=== PATIENT | female | born 1995 | race Caucasian/White ===

== ENCOUNTER → 2016-10-16 | Outpatient (CLI) | payer BC ==
[2016-10-16 10:11] LABS: CH 29.5; CHCM 33.4; HCT 40.7 % (34.0-46.0); HGB 13.9 gm/dL (11.4-16.0); MCH 30.3 pg (25.0-35.0); MCHC 34.2 g/dL (31.0-37.0); MCV 88.6 fL (80.0-100.0); Mean Platelet Volume 6.7; RBC 4.59 m/uL (3.80-5.40); RDW 12.5 % (11.5-15.5); WBC 7.1 k/uL (4.0-11.0)
[2016-10-16 10:24] LABS: Anion Gap 11 mmol/L; Blood Urea Nitrogen 11 mg/dL (7-17); Calcium 9.6 mg/dL (8.4-10.2); Carbon Dioxide 24 mmol/L (22-30); Chloride 107 mmol/L (98-107); Glucose 108 mg/dL (74-99); Non-African American GFR(MDRD) >60 (>60 ml/min/1.73 sqM); Potassium 4.3 mmol/L (3.5-5.1); Sodium 142 mmol/L (137-145)
== END | disposition home or self-care (01) ==
LOC: LABWHC1 08:58
PROVIDERS: ATTEND Family Medicine
DX: R06.02 Shortness of breath (principal)
CPT/HCPCS: 36415; 80048; 84443; 85027; 85379

== ENCOUNTER 2018-08-07 06:48 | Day surgery (SDC) | payer BC ==
[2018-08-01 08:57] VITALS: BMI 21.7
[~2018-08-07 06:48] MED LIST: DEXAMETHASONE SOD PHOSPHATE 10 MG/ML 1 ML VIAL IV ONE; DEXAMETHASONE SOD PHOSPHATE 4 MG/ML 1 ML VIAL IV ONE; FAMOTIDINE 20 MG/2 ML VIAL IV ONE; LACTATED RINGERS 1,000 ML IV SCH; LIDOCAINE 1% 20 ML VIAL (10MG/ML) FOR IV START INTRADERMA PRN; MELOXICAM 7.5 MG TAB PO ONE; MIDAZOLAM (PF) 2 MG/2 ML VIAL IV PRN; ONDANSETRON 4 MG/2 ML VIAL IVP ONE; ceFAZolin 1,000 MG in DEXTROSE/WATER 1 50ML.BAG IV ONE; fentaNYL (PF) 50 MCG/ML 2 ML AMP IV PRN
[2018-08-07] MEDS ORDERED: PROPOFOL 10 MG/ML 20 ML VIAL IV ONE (08:21)
[2018-08-07] MEDS ORDERED: LIDOCAINE 1% INJ 10MG/ML (20 ML MDV) ONE (08:21)
[2018-08-07] MEDS ORDERED: DILTIAZEM 100 MG VIAL.PORT IV ONE (08:21)
[2018-08-07] MEDS ORDERED: SUCCINYLCHOLINE CHLORIDE 100 MG/5 ML SYR IV ONE (08:21)
[2018-08-07] MEDS ORDERED: DEXAMETHASONE SOD PHOS (MDV) 100 MG/10 ML VIAL ONE (08:21)
[2018-08-07] MEDS ORDERED: MIDAZOLAM 2 MG/2 ML VIAL ONE (08:21)
[2018-08-07] MEDS ORDERED: BUPIVACAINE-EPI 0.5%-1:200,000 10 ML VIAL SQ ONE (08:26)
[2018-08-07] MEDS ORDERED: LIDOCAINE 1%-EPI 1:100,000 20 ML VIAL SQ ONE (08:26)
[2018-08-07] MEDS: HYDROmorphone 0.5 MG/0.5 ML SYRINGE IVP ONE ×2 (09:25→09:32)
[2018-08-07 09:32] VITALS: TEMP 97.1
--- NOTE | 2018-08-07 09:35 | P.OP ---
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 She's had over 6 cases that tonsillitis per year over the last 2-3 years. She has constant sore throats and exudate from her tonsils causing halitosis and cryptic tonsils. She is motivated to have her tonsils removed and we will inspect the adenoids and remove them if they're large and obstructive. All risks, benefits, and alternative therapies were discussed. Consent was obtained and all questions were answered. Operative Findings: Cryptic tonsils and adenoids large irregular inflamed Description of Procedure: Prior to surgery all risks, benefits, and alternative therapies were discussed in detail. Risks of bleeding, infection, need for secondary surgery, airway problems, anesthetic complications, etc. etc. were discussed in detail. Consent was obtained and all questions were answered. OPERATIVE PROCEDURE: This patient was taken to the operative room and placed in the supine position. A functioning IV line was in placed and the patient was monitored throughout the entire case by the department of anesthesia. The patient underwent general anesthetic with intubation and tube was secured. A McIvor mouth gag was placed into the patients mouth with care to avoid any trauma to the lips, teeth, gums or tongue. Mouth was opened and tongue was depressed. The tonsils were grasped with an Allis forceps and brought medially bilaterally. A subcapsular dissection was performed utilizing an Evac-70 handpiece with an Arthrotec setting of 7. The tonsils were removed without incident bilaterally and the tonsillar fossae were inspected and bleeding was nonexistent and stopped spontaneously with Coblation. A Marcaine and lidocaine mixture was injected into the peritonsillar area for anesthesia postoperatively. After the tonsillar fossae were reinspected and no bleeding was seen attention was then paid to the nasopharynx where a red rubber catheter was placed into the nose and out the mouth and used to retract the soft palate. With use of indirect mirror examination and the Coblation hand wand, the adenoid tissue was removed in that fashion again utilizing an Evac-70 handpiece with Arthrotec setting of 7. The adenoid tissues were removed and fulgurated. The patient tolerated this procedure well. The nasopharynx shows no signs of any bleeding. McIvor mouth gag and the red rubber catheter were removed. The stomach was suctioned and the patient was taken to postanesthesia recovery in excellent condition having tolerated this procedure well. The patient will follow up in the office in one week as scheduled.
[2018-08-07 10:18] VITALS: RESP 16
[2018-08-07] MEDS ORDERED: HYDROcodone/APAP 5-325MG 1 EACH TAB PO ONE (10:32)
[2018-08-07 11:56] VITALS: BP 108/78; PULSE 76
== END 2018-08-07 11:30 | disposition home or self-care (01) ==
LOC: OR 06:48
PROVIDERS: ATTEND Otolaryngology
DX: J03.91 Acute recurrent tonsillitis, unspecified (principal); J35.03 Chronic tonsillitis and adenoiditis; J45.909 Unspecified asthma, uncomplicated; R59.0 Localized enlarged lymph nodes; Z79.891 Long term (current) use of opiate analgesic; Z79.2 Long term (current) use of antibiotics; Z82.5 Family history of asthma and other chronic lower respiratory diseases; Z88.0 Allergy status to penicillin; Z88.1 Allergy status to other antibiotic agents
CPT/HCPCS: 81025; 88304; 42821; J2250; J1100 ×2; J2405; J2001; J0690; J0330; J2704; J1170

== ENCOUNTER → 2021-09-28 | Outpatient (CLI) | payer OTHER, BC ==
--- NOTE | 2021-09-28 16:30 | US ---
EXAMINATION TYPE: Transabdominal DATE OF EXAM: 09/28/2021 3:18 PM COMPARISON: NONE CLINICAL HISTORY: Z36.87 UNCERTAIN LMP. EXAM PERFORMED: Transabdominal (TA) EXAM MEASUREMENTS: GESTATIONAL AGE / DATING Physician Established: Not yet established Dates by LMP: LMP unknown Dates by First Scan: No previous this is first scan Dates by Current Scan for: ( 9 weeks/0 days) EDC: 05/03/2022 MATERNAL ANATOMY Uterus: 11.3 x 5.7 x 6.3cm Right Ovary: 3.8 x 1.8 x 2.6cm Left Ovary: 5.3 x 4.1 x 3.5cm Post CDS / Adnexa: wnl Presence of free fluid: no Presence of corpus luteal cyst: left ovary: 4.3 x 3.2 x 2.4cm Presence of subchorionic bleed: no GESTATION / SURVEY CRL: 2.2cm (9 weeks/0 days) Yolk Sac (normal less than 6mm): 4.2mm Heart Rate: 171 bpm Rhythm: Normal IUP: Viable IUP Single live intrauterine gestation as gestational sac, yolk sac, and pole are seen. No free flu id in pelvic cul-de-sac. Both ovaries are present. There is 4.3 cm nonsimple cyst in left ovary may reflect corpus luteal cyst . Other etiologies is not excluded. No suspicious extra ovarian masses. IMPRESSION: Single live intrauterine gestation is seen, mean crown-rump length 2.2 cm corresponding t o 9 week 0 day old fetus.
== END | disposition home or self-care (01) ==
LOC: RADUSWWP 14:54
PROVIDERS: ATTEND Obstetrics & Gynecology
DX: Z36.87 Encounter for antenatal screening for uncertain dates (principal); Z3A.09 9 weeks gestation of pregnancy
CPT/HCPCS: 76801

== ENCOUNTER 2022-04-30 09:45 | Inpatient (IN) | payer OTHER, BC ==
[2022-04-30 11:20] LABS: Appearance,Urine Clear (Clear); Bilirubin,Urine Negative (Negative); Blood,Urine Trace (Negative); Color,Urine Yellow; Glucose,Urine (UA) Negative (Negative); Ketones,Urine Negative (Negative); Leukocyte Esterase,Urine Negative (Negative); Mucus,Urine Rare /hpf; Nitrite,Urine Negative (Negative); Protein,Urine Negative (Negative); RBC,Urine <1 /hpf (0-5); Specific Gravity,Urine 1.015 (1.001-1.035); Squamous Epithelial Cell,Urine <1 /hpf (0-4); Urobilinogen,Urine <2.0 mg/dL (<2.0); WBC,Urine 1 /hpf (0-5)
[2022-04-30 11:36] LABS: Protein/Creatinine Ratio,Urine 0.061
[2022-04-30 12:02] LABS: Basophils % (A) 0 %; Eosinophils % (A) 0 %; HCT 33.5 % (34.0-46.0); Hypochromasia Slight; Lymphocytes # (A) 1.7 k/uL (1.0-4.8); Lymphocytes % (A) 13 %; MCH 26.8 pg (25.0-35.0); MCHC 32.9 g/dL (31.0-37.0); MCV 81.5 fL (80.0-100.0); Mean Platelet Volume 10.2; Monocytes # (A) 0.4 k/uL (0-1.0); Monocytes % (A) 3 %; Neutrophils # (A) 10.8 k/uL (1.3-7.7); Neutrophils % (A) 82 %; Platelet Count 192 k/uL (150-450); RBC 4.11 m/uL (3.80-5.40); WBC 13.3 k/uL (3.8-10.6)
[2022-04-30 12:15] LABS: ALT 16 U/L (4-34); AST 21 U/L (14-36); African American GFR (CKD) >90 (>60 ml/min/1.73 sqM); Blood Urea Nitrogen 11 mg/dL (7-17); LDH 467 U/L (313-618); Non-African American GFR(CKD) >90 (>60 ml/min/1.73 sqM); Uric Acid 4.3 mg/dL (3.7-7.4)
--- NOTE | 2022-04-30 13:11 | P.HPOB ---
History of Present Illness H&P Date: 04/30/22 Chief Complaint: Term , gestational hypertension This is a 27 year old 1 para 0 at 40-0/7 weeks gestation who presents with increasing contractions over the last several hours. She presents to labor and delivery triage where she was found to be irregularly stephie and 1 cm dilated. Her blood pressures were elevated. Initial blood pressures were 140s over 80s. They did come down to 130/74 however most recent blood pressure 145/95. Preeclamptic labs were all within normal limits.. Throughout her observation and blood pressure monitoring her contractions did increase in frequency and intensity. Her cervix is 1 cm dilated 90% effaced and the vertex in the -2 station, cervix is anterior with bulging membranes. heart tones are category 1. Decision is to admit in early active labor with gestational hypertension. Laboratory data: Blood type O positive, antibody screen negative, rubella immune, VDRL nonreactive, hepatitis B surface antigen negative, HIV negative, gonorrhea and clinic cultures negative, group B strep negative, glucose tolerance testing within normal limits. Review of Systems All systems: negative Past Medical History Past Medical History: No Reported History, Asthma History of Any Multi-Drug Resistant Organisms: None Reported Additional Past Surgical History / Comment(s): BMT, WISDOM TEETH REMOVED UNDER ANESTHESIA Past Anesthesia/Blood Transfusion Reactions: No Reported Reaction Smoking Status: Never smoker - Past Family History Mother Family Medical History: No Reported History Medications and Allergies Home Medications Medication Instructions Recorded Confirmed Type Aspirin [Adult Low Dose Aspirin EC] 81 mg PO DAILY 12/24/21 04/30/22 History Omeprazole [PriLOSEC] 10 mg PO DIRECTED 12/24/21 04/30/22 History Pnv No.154/Iron Fum/Folic Acid 1 capsule PO DAILY 12/24/21 04/30/22 History [ Plus Vitamin Tablet] Allergies Allergy/AdvReac Type Severity Reaction Status Date / Time amoxicillin Allergy Rash/Hives Verified 04/30/22 09:49 cefdinir [From Omnicef] Allergy Rash/Hives Verified 04/30/22 09:49 Exam Intake and Output 04/29/22 04/30/22 04/30/22 22:59 06:59 14:59 Other: Weight 78.018 kg Targeted physical exam is performed. This is a visibly gravid, uncomfortable female. HEENT exam unremarkable. Lungs clear to auscultation and breathing is unlabored. Heart is a regular rate and rhythm. Abdomen is gravid with palpable moderate contractions. No upper quadrant pain. On cervical exam the cervix is 1 cm dilated, 90% effaced and vertex in the -2 station with bulging membranes. There is bloody show. 2+ deep tendon reflexes and 1+ bilateral lower extremity edema. heart tones are category 1. She is stephie every 3-6 minutes. Results Result Diagrams: 04/30/22 11:46 04/30/22 11:47 Abnormal Lab Results - Last 24 Hours (Table) 04/30/22 04/30/22 Range/Units 10:49 11:46 WBC 13.3 H (3.8-10.6) k/uL Hgb 11.0 L (11.4-16.0) gm/dL Hct 33.5 L (34.0-46.0) % Neutrophils # 10.8 H (1.3-7.7) k/uL Urine Blood Trace H (Negative) Urine Mucus Rare H (None) /hpf Assessment and Plan (1) Term Current Visit: Yes Status: Acute Code(s): Z34.90 - ENCNTR FOR SUPRVSN OF NORMAL , UNSP, UNSP TRIMESTER SNOMED Code(s): 48047768 (2) Spontaneous onset of labor Current Visit: Yes Status: Acute Code(s): QOX3794 - SNOMED Code(s): 59133360 (3) induced hypertension Current Visit: Yes Status: Acute Code(s): O13.9 - GESTATIONAL HTN W/O SIGNIFICANT PROTEINURIA, UNSP TRIMESTER SNOMED Code(s): 88871102 Plan: 27 showed 1 para 0 woman admitted at 40-0/7 weeks gestation in spontaneous early active labor. Elevated blood pressures, preeclamptic labs within normal limits. Probable gestational hypertension. Is recommended for admission with augmentation of labor and blood pressure management as indicated. status is currently reassuring by external monitoring. She is group B strep negative and Rh+.
[2022-04-30] MEDS ORDERED: LIDOCAINE 0.5% (PF) 5 MG/ML (50 ML SDV) SQ PRN (15:02)
[2022-04-30] MEDS ORDERED: TERBUTALINE 1 MG/ML VIAL SQ PRN (15:02)
[2022-04-30 15:14] LABS: Basophils % (A) 0 %; Eosinophils % (A) 0 %; HCT 33.2 % (34.0-46.0); HGB 11.2 gm/dL (11.4-16.0); Hypochromasia Slight; Lymphocytes # (A) 1.9 k/uL (1.0-4.8); Lymphocytes % (A) 14 %; MCH 27.3 pg (25.0-35.0); MCHC 33.6 g/dL (31.0-37.0); Mean Platelet Volume 9.5; Monocytes # (A) 0.5 k/uL (0-1.0); Monocytes % (A) 4 %; Neutrophils # (A) 11.2 k/uL (1.3-7.7); Neutrophils % (A) 80 %; Platelet Count 202 k/uL (150-450); RDW 13.9 % (11.5-15.5)
[2022-04-30] MEDS: LACTATED RINGERS 1,000 ML IV SCH (15:15)
[2022-05-01] MEDS: BUTORPHANOL 1 MG/ML 1 ML VIAL IV PRN ×2 (01:02→03:58)
[2022-05-01] MEDS: LACTATED RINGERS 1,000 ML IV SCH ×2 (03:58→14:54)
[2022-05-01] MEDS: OXYTOCIN 30 UNITS/500 ML NS 30 UNIT in SALINE 1 500ML.BAG IV SCH ×2 (05:05→13:29)
[2022-05-01] MEDS ORDERED: fentaNYL (PF) 50 MCG/ML 5 ML AMP ONE (06:50)
[2022-05-01] MEDS ORDERED: SODIUM CHLORIDE 0.9% 100 ML BAG ONE (06:50)
[2022-05-01] MEDS ORDERED: ROPIVACAINE 5 MG/ML 20 ML AMPULE ONE (06:50)
[2022-05-01] MEDS ORDERED: OXYTOCIN 30 UNITS/500 ML NS 30 UNIT in SALINE 1 500ML.BAG IV SCH (13:15)
[2022-05-01] MEDS ORDERED: ZOLPIDEM 5 MG TAB PO PRN (13:15)
[2022-05-01] MEDS ORDERED: diphenhydrAMINE 50 MG/ML 1 ML VIAL IVP PRN ×2 (13:15)
[2022-05-01] MEDS ORDERED: LANOLIN CREAM 5 GM TUBE TOPICAL PRN (13:15)
[2022-05-01] MEDS ORDERED: HYDROCORTISONE 2.5% RECTAL CREAM 30 GM TUBE RECTAL PRN (13:15)
[2022-05-01] MEDS ORDERED: diphenhydrAMINE 50 MG CAP PO PRN (13:15)
[2022-05-01] MEDS ORDERED: diphenhydrAMINE 25 MG CAP PO PRN (13:15)
[2022-05-01] MEDS ORDERED: BENZOCAINE/MENTHOL SPRAY 1 GM/SPRAY AEROSOL TOPICAL PRN (13:15)
[2022-05-01] MEDS ORDERED: SIMETHICONE 80 MG CHEWABLE PO PRN (13:15)
--- NOTE | 2022-05-01 13:15 | P.PROBDLV ---
Vaginal Delivery Note - . Vaginal Delivery Note: Findings: Male infant in the vertex left occiput anterior position with Apgars of 9 at 1 minute and 9 at 5 minutes weighing 7 lbs. 8 oz., 3400 g. Second degree perineal laceration. Intact, three-vessel cord placenta. EBL 100 mL's. Delivery summary: This is a 27-year-old 1 para 0 woman who presented at 40-0/7 weeks' gestation with early labor and elevated blood pressures. Preeclamptic evaluation was negative and she was regularly stephie. She was therefore admitted. She had a prolonged latent stage of labor throughout the night however in the morning she was started on Pitocin augmentation and had spontaneous rupture of membranes. She received an epidural anesthetic. She then progressed to complete cervical dilation by approximately 11:37 AM. She commenced pushing with excellent maternal effort. When she did push to she was repositioned, prepped and draped in the dorsal modified Zuleyma position. With additional maternal effort the head delivered from the left occiput anterior position. The anterior followed by the posterior shoulders were delivered without difficulty and the rest of the infant was delivered onto the field. The nose and mouth were bulb suctioned and the infant was placed on maternal abdomen. The cord was clamped and cut. Cord blood sample was taken for maternal Rh- status. The perineum was inspected and a second-degree laceration was noted. This was infused with lidocaine. This was repaired with 3-0 Vicryl suture in the usual fashion. An intact, three-vessel cord placenta was then expressed after a less than 5 minute third stage of labor. The uterus was massaged and was noted to be firm below the level of the umbilicus. EBL was approximately 100 mL's. The rest the vagina and cervix were inspected and no further lacerations were noted. All counts were correct. Both mother and infant were doing well post delivery in the room.
[2022-05-01] MEDS: IBUPROFEN 600 MG TAB PO PRN ×2 (13:27→21:31)
[2022-05-01] MEDS: SENNOSIDES-DOCUSATE SODIUM 1 EACH TAB PO SCH (19:58)
[2022-05-01] MEDS: ACETAMINOPHEN TAB 325 MG TAB PO PRN (19:59)
[2022-05-02] MEDS: ACETAMINOPHEN TAB 325 MG TAB PO PRN ×2 (04:03→20:25)
[2022-05-02] MEDS: LACTATED RINGERS 1,000 ML IV SCH ×3 (04:23→17:10)
[2022-05-02 05:34] LABS: Basophils # (A) 0.1 k/uL (0-0.2); Basophils % (A) 0 %; Eosinophils # (A) 0.1 k/uL (0-0.7); Eosinophils % (A) 1 %; HCT 30.1 % (34.0-46.0); HGB 9.5 gm/dL (11.4-16.0); Hypochromasia Marked; Lymphocytes # (A) 2.4 k/uL (1.0-4.8); Lymphocytes % (A) 14 %; MCH 27.2 pg (25.0-35.0); MCHC 31.5 g/dL (31.0-37.0); Mean Platelet Volume 8.9; Monocytes # (A) 0.9 k/uL (0-1.0); Monocytes % (A) 5 %; Neutrophils # (A) 14.1 k/uL (1.3-7.7); Neutrophils % (A) 79 %; Platelet Count 197 k/uL (150-450); RBC 3.48 m/uL (3.80-5.40); WBC 17.9 k/uL (3.8-10.6)
[2022-05-02 05:35] LABS: MCV 86.3 fL (80.0-100.0)
[2022-05-02] MEDS: IBUPROFEN 600 MG TAB PO PRN ×3 (06:34→23:47)
[2022-05-02] MEDS: SENNOSIDES-DOCUSATE SODIUM 1 EACH TAB PO SCH ×2 (07:57→20:25)
[2022-05-02 20:51] VITALS: RESP 16
[2022-05-03] MEDS: LACTATED RINGERS 1,000 ML IV SCH (01:48)
[2022-05-03] MEDS: ACETAMINOPHEN TAB 325 MG TAB PO PRN (04:57)
--- NOTE | 2022-05-03 07:20 | P.DS ---
Providers Date of admission: 04/30/22 13:17 Expected date of discharge: 05/03/22 Attending physician: Michelle Estrada Primary care physician: Stated None - Discharge Diagnosis(es) (1) Term Current Visit: Yes Status: Acute (2) Spontaneous onset of labor Current Visit: Yes Status: Acute (3) induced hypertension Current Visit: Yes Status: Acute (4) Normal spontaneous vaginal delivery Current Visit: Yes Status: Acute (5) Perineal laceration with delivery, second degree Current Visit: Yes Status: Acute Hospital Course: This is a 27-year-old 1 now para 1 woman who presented at 40 weeks gestation in early active labor. She was also found to have some elevated blood pressures. PIH labs within normal limits. She was admitted and had a prolonged latent phase of labor. Ultimately she was started on the Pitocin and had spontaneous rupture of membranes. She received an epidural anesthetic during labor. She went on to complete cervical dilation and after greater than 1 hour first stage of labor went on to deliver a liveborn male infant over second- degree perineal laceration. Please see the delivery summaries for details. The her course was unremarkable. By the morning of day #1 she was ambulating and voiding without difficulty. She was struggling somewhat with breast-feeding. The 's serum bilirubin was elevated therefore she was not discharged home. By the morning of day #2 she continued to do very well. Breast-feeding was going Morphis successfully. Her pain was well- controlled and her lochia was decreasing. She is therefore discharged home with routine instructions for care and follow-up pending discharge of the . Patient Condition at Discharge: Good Plan - Discharge Summary New Discharge Prescriptions: No Action Pnv No.154/Iron Fum/Folic Acid [ Plus Vitamin Tablet] 1 capsule PO DAILY Omeprazole [PriLOSEC] 10 mg PO DIRECTED Aspirin [Adult Low Dose Aspirin EC] 81 mg PO DAILY Discharge Medication List Aspirin [Adult Low Dose Aspirin EC] 81 mg PO DAILY 12/24/21 [History] Omeprazole [PriLOSEC] 10 mg PO DIRECTED 12/24/21 [History] Pnv No.154/Iron Fum/Folic Acid [ Plus Vitamin Tablet] 1 capsule PO DAILY 12/24/21 [History] Follow up Appointment(s)/Referral(s): Michelle Estrada MD [STAFF PHYSICIAN] - 6 Weeks Activity/Diet/Wound Care/Special Instructions: Follow-up in the office in 6 weeks . Call with any concerning signs or symptoms including heavy vaginal bleeding, severe abdominal pain, fever greater than 101, swelling or redness of the lower extremities, foul vaginal discharge, or signs of depression. Nothing in the vagina for 6 weeks after delivery, specifically no intercourse. Discharge Disposition: HOME SELF-CARE
[2022-05-03] MEDS: SENNOSIDES-DOCUSATE SODIUM 1 EACH TAB PO SCH (08:38)
[2022-05-03] MEDS: IBUPROFEN 600 MG TAB PO PRN (08:38)
[2022-05-03 09:24] VITALS: BP 118/78; PULSE 73; TEMP 98.4
== END 2022-05-03 17:00 | disposition home or self-care (01) | DRG 807 ==
LOC: FBPOP 09:45 → 4FBP 13:17
PROVIDERS: ADMIT Obstetrics & Gynecology; ATTEND Obstetrics & Gynecology
PROC: 3E0R3BZ Introduction of Anesthetic Agent into Spinal Canal, Percutaneous Approach (ICD-10-PCS; principal; 2022-05-01)
PROC: 10E0XZZ Delivery of Products of Conception, External Approach (ICD-10-PCS; 2022-05-01)
PROC: 0KQM0ZZ Repair Perineum Muscle, Open Approach (ICD-10-PCS; 2022-05-01)
DX: O13.4 Gestational [pregnancy-induced] hypertension without significant proteinuria, complicating childbirth (principal); Z37.0 Single live birth; O12.14 Gestational proteinuria, complicating childbirth; O70.1 Second degree perineal laceration during delivery; O63.0 Prolonged first stage (of labor); Z3A.40 40 weeks gestation of pregnancy; Z79.82 Long term (current) use of aspirin; Z79.899 Other long term (current) drug therapy; Z88.0 Allergy status to penicillin; Z88.1 Allergy status to other antibiotic agents
CPT/HCPCS: 59025; 81001; 82565; 82570; 83615; 84156; 84450; 84460; 84520; 84550; 85025; 86850; 86900; 86901; 99215

== ENCOUNTER 2023-10-17 06:36 | Inpatient (IN) | payer OTHER ==
[2023-10-17] MEDS ORDERED: OXYTOCIN 10 UNIT/ML 1 ML VIAL IM PRN (09:13)
[2023-10-17] MEDS ORDERED: TERBUTALINE 1 MG/ML VIAL SQ PRN (09:13)
[2023-10-17] MEDS ORDERED: METHYLERGONOVINE 0.2 MG/ML 1 ML AMP IM PRN (09:13)
[2023-10-17] MEDS ORDERED: TRANEXAMIC 1,000 MG/100ML-NACL 1,000 MG in EMPTY BAG 1 BAG IV PRN (09:13)
[2023-10-17] MEDS ORDERED: miSOPROStoL 200 MCG TAB PO PRN (09:13)
[2023-10-17] MEDS ORDERED: CARBOPROST TROMETHAMINE 250 MCG/ML 1 ML AMP IM PRN (09:13)
[2023-10-17] MEDS ORDERED: VANCOMYCIN IV PER PHARMACY 1 EACH MISC MISCELLANE PRN (09:14)
[2023-10-17] MEDS ORDERED: OXYTOCIN 30 UNITS/500 ML NS 30 UNIT in SALINE 1 500ML.BAG IV SCH (09:15)
[2023-10-17] MEDS: LACTATED RINGERS 1,000 ML IV SCH (09:37)
[2023-10-17] MEDS: VANCOMYCIN 1,250 MG in SODIUM CHLORIDE 0.9% 250 ML IVPB SCH (09:51)
[2023-10-17 10:43] LABS: Basophils % (A) 0 %; Eosinophils % (A) 0 %; HCT 32.9 % (34.0-46.0); HGB 10.8 gm/dL (11.4-16.0); Hypochromasia Slight; Lymphocytes % (A) 13 %; MCH 26.6 pg (25.0-35.0); MCV 80.8 fL (80.0-100.0); Mean Platelet Volume 9.5; Monocytes # (A) 0.5 k/uL (0-1.0); Monocytes % (A) 4 %; Neutrophils # (A) 12.1 k/uL (1.3-7.7); Neutrophils % (A) 81 %; Platelet Count 160 k/uL (150-450); Poikilocytosis Slight; RBC 4.07 m/uL (3.80-5.40); RDW 14.7 % (11.5-15.5)
[2023-10-17] MEDS ORDERED: SODIUM CHLORIDE 0.9% 250 ML BAG ONE (11:31)
[2023-10-17] MEDS ORDERED: fentaNYL (PF) 50 MCG/ML 5 ML AMP ONE (11:31)
[2023-10-17] MEDS ORDERED: ROPIVACAINE 5 MG/ML 30 ML VIAL ONE (11:31)
--- NOTE | 2023-10-17 16:06 | P.HPOB ---
History of Present Illness H&P Date: 10/17/23 Chief Complaint: Labor Ms. Sosa is a 28 year old at 40 weeks and 2 days with EDC of 10/15/2023 by 9 week US who presents in labor. Her has been essentially uncomplicated. The fetus is estimated in the 74%ile based on a 27 week US. Obstetric history: 1 FTVD, male, 7#8oz, no cx work-up: blood type O positive, antibody screen negative, rubella immune, VDRL non-reactive, HBsAg negative, HIV negative, HCV Ab negative, gonorrhea negative, chlamydia negative, 1 hour GTT wnl, s/p Tdap. GBS positive. Past Medical History Past Medical History: No Reported History, Asthma Additional Past Medical History / Comment(s): Asthma from childhood - resolved now History of Any Multi-Drug Resistant Organisms: None Reported Past Surgical History: Adenoidectomy, Tonsillectomy Additional Past Surgical History / Comment(s): BMT, WISDOM TEETH REMOVED UNDER ANESTHESIA Past Anesthesia/Blood Transfusion Reactions: No Reported Reaction Past Psychological History: No Psychological Hx Reported Smoking Status: Never smoker Past Alcohol Use History: None Reported, Occasional Past Drug Use History: None Reported - Past Family History Mother Family Medical History: No Reported History Father Family Medical History: No Reported History Medications and Allergies Home Medications Medication Instructions Recorded Confirmed Type Aspirin [Adult Low Dose Aspirin EC] 81 mg PO DAILY 12/24/21 10/17/23 History Omeprazole [PriLOSEC] 10 mg PO DIRECTED 12/24/21 10/17/23 History RX: Pnv No.154/Iron Fum/Folic Acid 1 capsule PO DAILY 12/24/21 10/17/23 History [ Plus Vitamin Tablet] Allergies Allergy/AdvReac Type Severity Reaction Status Date / Time amoxicillin Allergy Rash/Hives Verified 10/17/23 06:39 cefdinir [From Omnicef] Allergy Rash/Hives Verified 10/17/23 06:39 Exam Vital Signs Temp Pulse Resp BP 10/17/23 09:57 97.3 F L 73 16 120/77 Intake and Output 10/17/23 10/17/23 10/17/23 06:59 14:59 22:59 Other: Weight 71.668 kg 71.668 kg Focused physical exam is performed. This is a healthy-appearing in no apparent distress. Breathing is non-labored. Abdomen is gravid and non-tender. Cervical exam is 9/100/-2 with ruptured membranes revealing clear amniotic fluid. Extremities non-tender and non-edematous. heart tones are Category I and tocometer is graphing contractions every 2-4 minutes. Results Result Diagrams: 10/17/23 10:05 Abnormal Lab Results - Last 24 Hours (Table) 10/17/23 Range/Units 10:05 WBC 15.0 H (3.8-10.6) k/uL Hgb 10.8 L (11.4-16.0) gm/dL Hct 32.9 L (34.0-46.0) % Neutrophils # 12.1 H (1.3-7.7) k/uL Assessment and Plan Assessment: 28 year old at 40 weeks and 2 days in active labor Plan: Admit, clear liquid diet, s/p epidural, Vancomycin for GBS ppx, continuous EFM and tocometer. Anticipate vaginal delivery.
[2023-10-17] MEDS: LIDOCAINE 0.5% (PF) 5 MG/ML (50 ML SDV) SQ PRN (17:16)
[2023-10-17] MEDS: OXYTOCIN 30 UNITS/500 ML NS 30 UNIT in SALINE 1 500ML.BAG IV SCH (17:17)
[2023-10-17] MEDS ORDERED: diphenhydrAMINE 25 MG CAP PO PRN (17:17)
[2023-10-17] MEDS ORDERED: SIMETHICONE 80 MG CHEWABLE PO PRN (17:17)
[2023-10-17] MEDS ORDERED: LANOLIN CREAM 1 GM TUBE TOPICAL PRN (17:17)
[2023-10-17] MEDS ORDERED: HYDROCORTISONE 2.5% RECTAL CREAM 30 GM TUBE RECTAL PRN (17:17)
[2023-10-17] MEDS ORDERED: ZOLPIDEM 5 MG TAB PO PRN (17:17)
[2023-10-17] MEDS ORDERED: diphenhydrAMINE 50 MG CAP PO PRN (17:17)
[2023-10-17] MEDS ORDERED: diphenhydrAMINE 50 MG/ML 1 ML VIAL IVP PRN ×2 (17:17)
[2023-10-17] MEDS ORDERED: BENZOCAINE/MENTHOL SPRAY 1 GM/SPRAY AEROSOL TOPICAL PRN (17:17)
--- NOTE | 2023-10-17 17:17 | P.PROBDLV ---
Vaginal Delivery Note - . Vaginal Delivery Note: DATE OF SERVICE: 10/17/2023 PROCEDURE: Normal Spontaneous Vaginal Delivery ATTENDING: Dr. Mili Alexis MD ESTIMATED BLOOD LOSS: 100 mL FINDINGS: VMI, Apgars 9/9. Weight 8 pounds and 11 ounces (3940 grams) PROCEDURE: Ms. Sosa is a 28 year old at 40 weeks and 2 days presenting to labor and delivery in active labor. The has been essentially uncomplicated. For further details, please review the admitting H&P. The patient is GBS positive with allergies to pencillin and cephalosporins, therefore, IV Vancomycin was given for GBS prophylaxis. The patient received epidural anesthesia per her request. AROM occurred at 1543 revealing clear a mniotic fluid. The patient was completely dilated at 1644. The patient pushed effectively with Category II heart tones. A viable male infant was delivered at 1658. The was placed on the maternal abdomen and bulb suctioned. The was noted to be spontaneously crying. Cord was clamped and cut after a 1-minute delay. The was handed off to the pediatric team. Placenta was delivered whole with gentle cord traction at 1703. Oxytocin was started to facilitate uterine tone. Uterine fundus was found to be firm and below the umbilicus upon fundal massage. Thorough examination of the cervix, vagina, periurethral area, and perineum revealed a second degree periurethral laceration that was infiltrated with lidocaine and repaired with 2-0 Vicryl in the usual fashion. The patient is stable and allowed to begin the bonding process.
[2023-10-17] MEDS: IBUPROFEN 600 MG TAB PO PRN (21:00)
[2023-10-17] MEDS: SENNOSIDES-DOCUSATE SODIUM 1 EACH TAB PO SCH (21:01)
[2023-10-18] MEDS: ACETAMINOPHEN TAB 325 MG TAB PO PRN (00:24)
[2023-10-18 07:23] LABS: Basophils % (A) 0 %; Eosinophils # (A) 0.2 k/uL (0-0.7); Eosinophils % (A) 1 %; HCT 30.5 % (34.0-46.0); Hypochromasia Slight; Lymphocytes # (A) 2.9 k/uL (1.0-4.8); Lymphocytes % (A) 17 %; MCH 26.5 pg (25.0-35.0); MCHC 32.7 g/dL (31.0-37.0); MCV 81.1 fL (80.0-100.0); Mean Platelet Volume 9.6; Monocytes # (A) 0.8 k/uL (0-1.0); Monocytes % (A) 5 %; Neutrophils # (A) 13.3 k/uL (1.3-7.7); Neutrophils % (A) 76 %; Platelet Count 168 k/uL (150-450); RBC 3.76 m/uL (3.80-5.40); RDW 14.8 % (11.5-15.5); WBC 17.5 k/uL (3.8-10.6)
[2023-10-18 08:35] VITALS: RESP 16
[2023-10-18 17:44] VITALS: BP 119/81; PULSE 66; TEMP 98.2
== END 2023-10-18 18:55 | disposition home or self-care (01) | DRG 807 ==
LOC: FBPOP 06:36 → 4FBP 09:05
PROVIDERS: ADMIT Obstetrics & Gynecology; ATTEND Obstetrics & Gynecology
PROC: 10E0XZZ Delivery of Products of Conception, External Approach (ICD-10-PCS; principal; 2023-10-17)
PROC: 0UQMXZZ Repair Vulva, External Approach (ICD-10-PCS; 2023-10-17)
PROC: 10907ZC Drainage of Amniotic Fluid, Therapeutic from Products of Conception, Via Natural or Artificial Opening (ICD-10-PCS; 2023-10-17)
PROC: 3E033VJ Introduction of Other Hormone into Peripheral Vein, Percutaneous Approach (ICD-10-PCS; 2023-10-17)
PROC: 4A1HXCZ Monitoring of Products of Conception, Cardiac Rate, External Approach (ICD-10-PCS; 2023-10-17)
DX: O99.824 Streptococcus B carrier state complicating childbirth (principal); Z37.0 Single live birth; J45.909 Unspecified asthma, uncomplicated; O71.82 Other specified trauma to perineum and vulva; O48.0 Post-term pregnancy; O99.52 Diseases of the respiratory system complicating childbirth; Z3A.40 40 weeks gestation of pregnancy; Z79.82 Long term (current) use of aspirin; Z88.1 Allergy status to other antibiotic agents; Z88.8 Allergy status to other drugs, medicaments and biological substances
CPT/HCPCS: 59025; 85025; 86850; 86900; 86901; 99213